=== PATIENT | female | born 1945 | race Two or more races ===

== ENCOUNTER 2018-04-01 23:12 | Emergency (ER) | payer OTHER ==
[~2018-04-01] VITALS: Ht 129.5 cm; Wt 52.2 kg
[2018-04-01 23:22] VITALS: BP 150/61
[2018-04-02] MEDS ORDERED: MEPERIDINE HCL (50 MG/ML) 1 ML VIAL IM ONE (02:00)
[2018-04-02] MEDS ORDERED: ONDANSETRON HCL 4 MG/2 ML VIAL IM ONE (02:00)
== END 2018-04-02 03:14 | disposition home or self-care (01) ==
LOC: ER 23:12
DX: S52.502A Unspecified fracture of the lower end of left radius, initial encounter for closed fracture (principal); S52.692A Other fracture of lower end of left ulna, initial encounter for closed fracture; W01.198A Fall on same level from slipping, tripping and stumbling with subsequent striking against other object, initial encounter; Y93.89 Activity, other specified; Y99.8 Other external cause status; Y92.89 Other specified places as the place of occurrence of the external cause
CPT/HCPCS: 29125; 73080; 73110; J2405